=== PATIENT | female | born 1970 | race American Indian/Alaskan Native ===

== ENCOUNTER 2018-02-08 09:29 | Day surgery (SDC) | payer OTHER ==
[2017-02-10 18:49] VITALS: BMI 32.9
[2018-02-08] MEDS ORDERED: Propofol 10 mg/ml Inj (20 ML) ONE ×2 (10:10→10:19)
--- NOTE | 2018-02-08 10:21 | CP.SDSHP ---
Same Day Surgery H & P - History Proposed Procedure: colonscopy Pre-Op Diagnosis: SEE NOTES - Previous Medical/Surgical History Cardiac: Hypertension Pulmonary: Asthma Endocrine/Metabolic: Thyroid Disease, Diabetes, Other Misc: Other Pain: 4.Moderate Pain - Allergies Allergies: Allergies morphine Allergy (Verified 02/08/18 09:53) ANGIOEDEMA Penicillins Allergy (Verified 02/08/18 09:53) RASH LEVAQUIN Allergy (Uncoded 02/08/18 09:53) RASH - Physical Exam General Appearance: N Vital Signs: Vital Signs 02/08/18 09:50 Temperature 98.6 F Pulse Rate 71 Respiratory 16 Rate Blood Pressure 132/72 O2 Sat by Pulse 97 Oximetry Mental Status: Alert & Oriented x3 Neuro: WNL Heart: Other Lungs: Other GI: Other - {Optional Preform as Required} Breast: WNL Abdomen: Other Rectal: Other Integument: WNL : WNL Ortho: Other ENT: WNL - Impression Pt. Evaluated Today:Candidate for Anesthesia & Procedure: Yes - Date & Time Time: 10:21 Short Stay Discharge - Short Stay Discharge Admitting Diagnosis/Reason for Visit: DIARRHEA Disposition: HOME/ ROUTINE
[2018-02-08] MEDS ORDERED: Belladonna-Phenobarbital PO ONE (10:45)
[2018-02-08 13:10] VITALS: TEMP 97.1
[2018-02-08 13:20] VITALS: BP 139/67; PULSE 67; RESP 15; O2SAT 100
== END 2018-02-08 12:30 | disposition home or self-care (01) ==
LOC: C.ENDO 09:29
PROVIDERS: ATTEND Specialist
DX: K58.9 Irritable bowel syndrome, unspecified (principal); I10 Essential (primary) hypertension; J45.909 Unspecified asthma, uncomplicated; E11.9 Type 2 diabetes mellitus without complications
CPT/HCPCS: 45380; 82948; 88305; J2704; J3010